=== PATIENT | female | born 1960 | race Caucasian/White ===

== ENCOUNTER 2019-09-30 04:51 | Emergency (ER) | payer SELFPAY ==
--- NOTE | 2019-09-30 05:52 | ED ---
Adult Trauma - HPI Summary HPI Summary: This patient is a 59-year-old female who presents to the ED with left-sided shoulder, rib, elbow and knee pain. She states she was at work when she tripped over a scale, landing on her left side. She believes she landed onto her left shoulder and ribs and then went down and scraped her knee. She denies hitting her head or LOC. Pain is currently rated a 5/10. She declines pain medications on arrival. Denies any difficulty with breathing or shortness of breath. Denies any headache or other injuries/pain. Patient was ambulatory following the incident. Medications and allergies reviewed. - History of Current Complaint Chief Complaint: Mitraj Stated Complaint: FALL HURT RIB PER PT Time Seen by Provider: 09/30/19 05:34 Hx Obtained From: Patient ?: No Mechanism of Injury: Fall Ambulatory at the Scene: No Loss of Consciousness: no loss of consciousness Onset of Pain: Immediate Onset Severity: Mild Current Severity: Mild Pain Intensity: 7 Pain Scale Used: 0-10 Numeric Location: Other - left sided rib pain Character: Aching Associated Signs & Symptoms: Positive: Negative. Negative: SOB, Chest Pain, Cough, Hematuria, Nausea/Vomiting, Loss of Consciousness, Memory Loss, Numbness/ Weakness, Hoarseness, Dysphagia, Hemoptysis, Significant Blood Loss - Allergy/Home Medications Allergies/Adverse Reactions: Allergies Allergy/AdvReac Type Severity Reaction Status Date / Time MS Codeine [Codeine] Allergy Severe Rash Verified 09/30/19 04:57 MS Propoxyphene [From Darvon] Allergy Severe Rash Verified 09/30/19 04:57 MS Ramipril [From Altace] Allergy Unknown Verified 09/30/19 04:57 Reaction Details PMH/Surg Hx/FS Hx/Imm Hx Previously Healthy: Yes Endocrine/Hematology History: Reports: Hx Thyroid Disease - Hypothyroid Denies: Hx Diabetes Cardiovascular History: Reports: Hx Hypertension Respiratory History: Reports: Hx Chronic Obstructive Pulmonary Disease (COPD) Denies: Hx Asthma GI History: Denies: Hx Ulcer - Cancer History Cancer Type, Location and Year: 1979 Hx Chemotherapy: No Hx Radiation Therapy: No - Surgical History Surgery Procedure, Year, and Place: sep 2012- an obgyn surgery, right knee - Immunization History Hx Pertussis Vaccination: No Immunizations Up to Date: Yes Infectious Disease History: No Infectious Disease History: Denies: Hx Clostridium Difficile, Hx Hepatitis, Hx Human Immunodeficiency Virus (HIV), Hx of Known/Suspected MRSA, Hx Shingles, Hx Tuberculosis, Hx Known/ Suspected VRE, Hx Known/Suspected VRSA, History Other Infectious Disease, Traveled Outside the [place] in Last 30 Days - Social History Occupation: Employed Full-time Lives: With Family Alcohol Use: None Hx Substance Use: No Substance Use Type: Reports: None Smoking Status (MU): Current Every Day Smoker Type: Cigarettes Amount Used/How Often: 1/3 ppd Length of Time of Smoking/Using Tobacco: 30+ years Have You Smoked in the Last Year: Yes Review of Systems Negative: Fever, Chills, Fatigue, Skin Diaphoresis Negative: Diplopia Negative: Palpitations, Chest Pain Negative: Shortness Of Breath, Cough Negative: Abdominal Pain, Vomiting, Diarrhea, Nausea Positive: Arthralgia - left rib pain Positive: Other - abrasion to the L knee and L elbow Neurological: Negative All Other Systems Reviewed And Are Negative: Yes Physical Exam Triage Information Reviewed: Yes Vital Signs On Initial Exam: Initial Vitals Temp Pulse Resp BP Pulse Ox 98.8 F 76 15 179/86 97 09/30/19 04:55 09/30/19 04:55 09/30/19 04:55 09/30/19 04:55 09/30/19 04:55 Vital Signs Reviewed: Yes Appearance: Positive: Well-Appearing, Well-Nourished Skin: Positive: Skin Color Reflects Adequate Perfusion, Other - L knee abrasion , L elbow abrasion Head/Face: Positive: Normal Head/Face Inspection Eyes: Positive: EOMI, PAMELA, Conjunctiva Clear Neck: Positive: Supple, No Lymphadenopathy Respiratory/Lung Sounds: Positive: Clear to Auscultation, Breath Sounds Present Cardiovascular: Positive: RRR, Pulses are Symmetrical in both Upper and Lower Extremities Abdomen Description: Positive: Nontender Musculoskeletal: Positive: Pain @ - Left rib pain, left knee pain - no pain to palpation. pt ambulating well Neurological: Positive: Speech Normal Psychiatric: Positive: Normal, Affect/Mood Appropriate AVPU Assessment: Alert Procedures - Sedation Patient Received Moderate/Deep Sedation with Procedure: No Diagnostics - Vital Signs Vital Signs Temp Pulse Resp BP Pulse Ox 09/30/19 04:55 98.8 F 76 15 179/86 97 - Laboratory Lab Statement: Any lab studies that have been ordered have been reviewed, and results considered in the medical decision making process. Adult Trauma Course/Dx - Course Course Of Treatment: On physical examination, patient does not have pain to palpation of the left shoulder joint, abduction and abduction, full range of motion without limitations. Left elbow has a small abrasion to the left lateral side. Flexion and extension intact. Denies any pain with direct palpation of the elbow. No pain to the wrist or hand. Mild amount of pain to palpation of the left ribs. No pain to palpation of the left hip, left knee or left ankle. There is an abrasion to the left knee. Lungs wheezing throughout. Patient has history of COPD. Vital signs are stable. Left-sided rib with chest x-ray obtained: Negative for any findings. Pt discharged with rib contusion. - Diagnoses Provider Diagnoses: Rib contusion Discharge ED - Sign-Out/Discharge Documenting (check all that apply): Patient Departure - Discharge Plan Condition: Stable Disposition: HOME Patient Education Materials: Rib Contusion (ED) Forms: *Work Release Referrals: Ani Richardson MD [Primary Care Provider] - Additional Instructions: Please return to the ED for any worsening symptoms Will call you with any positive results Tylenol as needed for pain Moist heat Rest - Billing Disposition and Condition Condition: STABLE Disposition: Home
[2019-09-30 06:44] VITALS: BP 182/88
== END 2019-09-30 06:44 | disposition home or self-care (01) ==
LOC: ED 04:51
DX: S20.212A Contusion of left front wall of thorax, initial encounter (principal); S80.212A Abrasion, left knee, initial encounter; S50.312A Abrasion of left elbow, initial encounter; M25.512 Pain in left shoulder; W01.0XXA Fall on same level from slipping, tripping and stumbling without subsequent striking against object, initial encounter; Y93.89 Activity, other specified; Y92.9 Unspecified place or not applicable; Y99.0 Civilian activity done for income or pay; I10 Essential (primary) hypertension; J44.9 Chronic obstructive pulmonary disease, unspecified; Z88.5 Allergy status to narcotic agent; Z88.8 Allergy status to other drugs, medicaments and biological substances; F17.210 Nicotine dependence, cigarettes, uncomplicated
CPT/HCPCS: 99282